=== PATIENT | female | born 1970 | race Hispanic/Latino ===

== ENCOUNTER 2022-02-05 07:30 | Day surgery (SDC) | payer BC ==
[2022-02-05] VITALS (7 sets, daily range): BP systolic 95–109; BP diastolic 56–71
[~2022-02-05] VITALS: Ht 162.6 cm; Wt 82.6 kg
[~2022-02-05 07:30] MED LIST: ATOR40TA71 PO; MULT-1203 PO; OMEP40CA21 PO
[2022-02-05] MEDS ORDERED: 0.9%NACL 1000ML 1,000 ML IV ONE (08:14)
[2022-02-05] MEDS ORDERED: PROPOFOL 10 MG/ML 20ML VIAL IV ONE ×2 (10:10)
== END 2022-02-05 11:15 | disposition home or self-care (01) ==
LOC: DAH 07:30
PROVIDERS: ATTEND Surgery
DX: K21.9 Gastro-esophageal reflux disease without esophagitis (principal); R13.10 Dysphagia, unspecified; K29.50 Unspecified chronic gastritis without bleeding; K91.850 Pouchitis; E78.00 Pure hypercholesterolemia, unspecified; Z98.890 Other specified postprocedural states; Z90.49 Acquired absence of other specified parts of digestive tract; Z90.710 Acquired absence of both cervix and uterus; Z98.891 History of uterine scar from previous surgery; Z98.84 Bariatric surgery status; Z82.49 Family history of ischemic heart disease and other diseases of the circulatory system
CPT/HCPCS: 87426; 43236; 43239; J7030; J2704; A4620; A4215 ×2; A4223; A4222; A4221; A4663; A4606